=== PATIENT | female | born 2000 | race Caucasian/White ===

== ENCOUNTER 2024-11-09 08:46 | Emergency (ER) | payer BC, SELFPAY ==
[2024-11-09 08:49] VITALS: BP 123/69
[2024-11-09 09:42] VITALS: BMI 19.3
--- NOTE | 2024-11-09 10:13 | ED.GENMED ---
History of Present Illness
General
Chief Complaint: Breathing Problem
Source: patient and family
Exam Limitations: none
Time Seen by Provider: 11/09/24 09:28
Nursing documentation reviewed up to this point in time: agreed with
History of Present Illness
History of Present Illness:
24-year-old female past medical history of asthma presenting to the emergency department today with concerns of shortness of breath and upper respiratory symptoms over the past 2 months. Has been on nebulizer treatment steroids and antibiotics.
Symptoms seem to be worsening over the past week or so. Initially was being treated by her entry rep that treats her RA. Steroids were not working send the following up with a meat seafood associate had ordered a CT scan but has not been able to
schedule it for anything sooner 3 weeks. She claims that the shortness of breath seems to be worsening despite high doses of steroids over the past few weeks and also on a short course of antibiotics. Denies specific chest pain nausea vomiting.
Denies specific fever.
Review of Systems
Review of Systems
Allergies reviewed?: Yes
All Other Systems: ROS reviewed and negative except as documented in HPI and ROS
Phy Exam
Physical Exam
Physical Exam:
GENERAL: Alert , in no apparent distress
EYE: pupils equal and reactive
NECK: Supple, no significant adenopathy.
ENT: o/p clr, mmm.
CARDIAC: Regular rate and rhythm .
LUNGS: Clear breath sounds bilaterally, no acute respiratory distress, no wheezes/rales/rhonchi
ABDOMEN: Soft, without focal tenderness, no r/g, no cvat
NEUROLOGICAL: Alert and oriented, no focal neuro deficits
SKIN: Warm and dry, skin intact.
MUSCULOSKELETAL: No edema, well perfused.
PSYCH: Normal and appropriate interaction.
Course
Orders/Labs/Results
Orders:
Orders
11/09/24 10:09
CT Chest PE Study Urgent
Comment:
Reason For Exam: cp sob tachy
Test Result ONCE
11/09/24 10:23
Complete Blood Count/With Diff Urgent
11/09/24 11:35
Comprehensive Metabolic Panel Urgent
HCG, Serum Qualitative Screen Urgent
Troponin I Urgent
11/09/24 16:01
EKG [Electrocardiogram (*1)] Urgent
Reason for Study: Shortness of Breath
EKG- Treatment ONCE
Abnormal Lab Results
11/09/24 11/09/24
10:23 11:35
MCH 31.6 H pg
(27.0-31.0)
Abs Immat Gran (auto) 0.5 H 10^3/uL
(0-0.05)
Absolute Monos (auto) 0.8 H 10^3/uL
(0.1-0.6)
Immature Gran % 4.9 H %
(0-0.5)
Sodium 134 L mmol/L
(135-145)
11/09/24 10:23
11/09/24 11:35
Vital Signs
Initial and Last Documented VS:
Initial Vital Signs
Temp Pulse Resp BP Pulse Ox
99.2 F 106 20 123/69 100
11/09/24 08:49 11/09/24 08:49 11/09/24 08:49 11/09/24 08:49 11/09/24 08:49
Last Documented Vital Signs
Temp Pulse Resp BP Pulse Ox
99.2 F 106 20 123/69 100
11/09/24 08:49 11/09/24 08:49 11/09/24 08:49 11/09/24 08:49 11/09/24 08:49
MDM/Problems Addressed
MDM/Problems Addressed:
24-year-old female presenting to the emergency department today with concerns of shortness of breath worsening over the past 2 months. Has been on nebulizer treatments daily inhalers steroids and antibiotics without relief. Worsening over the past
few days. Has an outpatient CT scan ordered from pulmonary but unable to make an appointment within the next few weeks. Here she is mildly tachycardic mildly tachypneic. Concerning the ongoing shortness of breath plan for CT scan for further
assessment. CT scan did not show emergent findings labs unremarkable here no evidence of PE troponin negative. Otherwise patient advised for outpatient follow-up with her meat seafood associate. Return precautions given
*Critical Care Note
Total Time (30-74mins, 75-104mins- exclusive of procedures): Not Applicable
ED Attending Note
-
Portions of this chart may have been created with voice recognition software.� Occasional wrong word or��sound alike� substitutions may have occurred due to the inherent limitations of voice recognition software.
Discharge Plan
Departure
Patient Disposition: Home (Routine Discharge)
Date of Disposition: 11/09/24
Time of Disposition: 16:37
Patient with high blood pressure during this ER visit?: No
Condition: Good
Covid-19: Not Applicable
Discharge Problem:
Shortness of breath
Instructions: Shortness of Breath (Dyspnea) (DC)
Referrals:
Fatoumata Carlson MD [Family Provider] -
Activity Restrictions/Additional Instructions:
You came to the emergency department today with concerns of ongoing shortness of breath. Here you had a reassuring assessment with a normal CT scan of your chest EKG and labs. Please follow closely with pulmonary. Return for any worsening, new or
concerning symptoms.
Interventions
Interventions:
*Risk Screen - Suicide Last Done: 11/09/24 08:49
*General Assessment Last Done: 11/09/24 08:49
*Neglect/Abuse Screening Last Done: 11/09/24 08:49
ED- Fall Risk Assessment Last Done: 11/09/24 09:42
*ED COVID-19 Vaccine History Last Done: 11/09/24 09:42
ED- Cardiac Assessment Last Done: 11/09/24 09:42
ED- Pulmonary Assessment Last Done: 11/09/24 09:42
Discharge Date and Time
Print Language: CONGOLESE
[2024-11-09 10:46] LABS: % Basophils 0.9 % (0-2); % Eosinophils 0.3 % (0-6); % Immature Granulocytes 4.9 % (0-0.5); % Lymphocytes 31.7 % (20.5-51.1); % Monocytes 8.1 % (1.7-9.3); % Neutrophils 54.1 % (42.2-75.2); Absolute Basophils 0.1 10^3/uL (0-0.2); Absolute Immature Granulocytes 0.5 10^3/uL (0-0.05); Absolute Lymphocytes 3.3 10^3/uL (1.2-3.4); Absolute Monocytes 0.8 10^3/uL (0.1-0.6); Absolute Neutrophils 5.7 10^3/uL (1.4-6.5); Hematocrit 43.7 % (37.0-47.0); Hemoglobin 14.4 g/dL (12.0-16.0); Mean Corpuscular Hgb 31.6 pg (27.0-31.0); Mean Platelet Volume 9.5 fL (7.4-10.4); Nucleated Red Blood Cells % 0 %; Platelet Count 245 10^3/uL (130-400); Red Blood Cell Count 4.55 10^6/uL (4.20-5.40); Red Cell Dist. Width 12.4 % (11.5-14.5); White Blood Cell Count 10.4 10^3/uL (4.8-10.8)
[2024-11-09 12:27] LABS: ALT (SGPT) 14 U/L (0-35); AST (SGOT) 16 U/L (14-36); Albumin 3.7 g/dl (3.5-5.0); Alkaline Phosphatase 45 U/L (38-126); Blood Urea Nitrogen 12 mg/dl (7-17); Carbon Dioxide 28 mmol/L (22-30); Chloride 100 mmol/L (98-107); Estimated Creatinine Clearance 90 ml/min; Glucose 78 mg/dl (70-99); Potassium 3.6 mmol/L (3.5-5.1); Sodium 134 mmol/L (135-145); Total Bilirubin 0.3 mg/dl (0.2-1.3); Total Protein 6.3 g/dl (6.3-8.2); eGFR > 60.00
[2024-11-09 12:36] LABS: Troponin I < 0.012 ng/ml
[2024-11-09 12:40] LABS: HCG, Serum Qualitative Screen Negative
== END 2024-11-09 16:56 | disposition home or self-care (01) ==
LOC: EMR 08:46
PROVIDERS: Physician Assistant; EMERGENCY PHYSICIAN Emergency Medicine; FAMILY PHYSICIAN Family Medicine
DX: R06.02 Shortness of breath (principal); R00.0 Tachycardia, unspecified; J45.909 Unspecified asthma, uncomplicated; M06.9 Rheumatoid arthritis, unspecified; Z91.040 Latex allergy status
CPT/HCPCS: 99284; 71275; 80053; 84484; 84703; 85025; 93005; Q9967